=== PATIENT | female | born 1980 | race Caucasian/White ===

== ENCOUNTER 2017-12-06 17:01 | Inpatient (IN) | payer OTHER ==
[2017-12-06] VITALS (10 sets, daily range): BP systolic 86–127; BP diastolic 47–80
[~2017-12-06] VITALS: Ht 172.7 cm; Wt 68.9 kg
[~2017-12-06 17:01] MED LIST: BIRTH CONTROL PO; FLEXERIL PO; FLONASE 0.05%50 MCG NASAL; HYDROCODON-ACE1 EAC7 PO; NORCO 5-325 TA1 EAC1 PO; NORCO 5-325 TA1 EACH PO
[2017-12-06] MEDS ORDERED: FLEXERIL PO (17:14)
[2017-12-06] MEDS ORDERED: PROZAC20 MG PO (17:14)
[2017-12-06] MEDS ORDERED: NABUMETONE 750750 M1 PO (17:14)
[2017-12-06] MEDS ORDERED: HYDROXYZINE HCL25 M1 PO (17:15)
[2017-12-06] MEDS ORDERED: ATIVAN1 MG PO (17:15)
[2017-12-06] MEDS ORDERED: XANAX 0.5 MG0.5 MG PO (17:16)
--- NOTE | 2017-12-06 17:20 | NUR ---
bottles found with pt: alprazolam 0.5mg 2013 #30, fluoxetine 20mg 2017 #30, cyclobenzaprine 10mg 2012 #60, hydroxyzine hcl 25 mg 11/07/17 #30 with 3 left, fluoxetine 20 mg 08/24/17 #30, lorazepam 1 mg 2012 #14, husbands pill bottles found next to pt oxycodone 5mg 2011, xanax 0.5 mg 2012 #30 (#30, #60 and #14 are number of pills rx'd in bottles, only bottle with pills left was hydroxyzine with 3)
--- NOTE | 2017-12-06 17:52 | NUR ---
PT BECAME AROUSABLE AFTER ROMAZICON. AWAKE FOR APPROXIMATELY 5 MINUTES; THEN FALLS BACK TO SLEEP
[2017-12-06 17:56] LABS: ABSOLUTE EOSINOPHILS 0.1 thou/uL (0.0-0.7); ABSOLUTE LYMPHOCYTES 2.5 thou/uL (0.8-5.3); ABSOLUTE MONOCYTES 0.5 thou/uL (0.0-1.2); ABSOLUTE NEUTROPHILS 5.8 thou/uL (1.6-8.1); BASOPHILS 0.5 %; EOSINOPHILS 0.8 %; HEMATOCRIT 40.5 % (37.0-47.0); HEMOGLOBIN 13.6 gm/dL (12.0-15.0); LYMPHOCYTES 27.6 %; MCH 31.8 pg (26.0-34.0); MCHC 33.7 g/dL (28.0-37.0); MCV 94.4 fL (80.0-100.0); MONOCYTES 6.1 %; MPV 8.9 fl. (7.2-11.1); NUCLEATED RBCS 0 /100WBC; PLATELET COUNT* 250 thou/uL (150-400); RBC 4.29 mil/uL (4.20-5.00); RDW-CV 14.1 % (10.5-14.5); WBC 8.9 thou/uL (4.0-11.0)
[2017-12-06 18:02] LABS: CALCIUM 8.1 mg/dL (8.5-10.1); CREATININE 0.5 mg/dL (0.6-1.3); POTASSIUM 3.8 mmol/L (3.5-5.1)
[2017-12-06 18:07] LABS: ALBUMIN 3.8 g/dL (3.4-5.0); TOTAL PROTEIN 6.7 g/dL (6.4-8.2)
[2017-12-06 18:13] LABS: BE -4.7 mmol/L (-2 to +3); HCO3 22.3 mmol/L (22.0-26.0); PCO2 48.7 mmHg (35.0-45.0); PO2 110.4 mmHg (75.0-100.0)
[2017-12-06 18:15] LABS: pH 7.278 (7.340-7.450)
[2017-12-06 18:19] LABS: SALICYLATE 2.7 mg/dL (2.8-20.0)
[2017-12-06 19:27] LABS: APTT 27.4 Seconds (25.0-31.3)
[2017-12-06 19:42] LABS: URINE BILIRUBIN NEGATIVE (Negative); URINE BLOOD NEGATIVE (Negative); URINE CLARITY CLEAR; URINE COLOR YELLOW; URINE GLUCOSE-RANDOM NEGATIVE (Negative); URINE KETONES NEGATIVE (Negative); URINE LEUKOCYTES-REFLEX NEGATIVE (Negative); URINE NITRITE-REFLEX NEGATIVE (Negative); URINE PROTEIN NEGATIVE (Negative); URINE UROBILINOGEN 0.2 E.U./dl (0.2-1.0)
[2017-12-06 19:56] LABS: AMP/METHAMP Negative (Negative); BARBITURATES Negative (Negative); BENZODIAZEPINES POSITIVE (Negative); COCAINE Negative (Negative); METHADONE Negative (Negative); OPIATES POSITIVE (Negative); PCP Negative (Negative); THC Negative (Negative)
[2017-12-06 20:16] LABS: BE -4.5 mmol/L (-2 to +3); HCO3 24.3 mmol/L (22.0-26.0); PO2 123.3 mmHg (75.0-100.0)
[2017-12-06 20:18] LABS: pH 7.213 (7.340-7.450)
[2017-12-06 20:19] LABS: PCO2 61.7 mmHg (35.0-45.0)
[2017-12-06] MEDS ORDERED: EFFEXOR XR75 MG PO (20:43)
[2017-12-06 23:41] LABS: BE -3.7 mmol/L (-2 to +3); HCO3 25.9 mmol/L (22.0-26.0)
[2017-12-06 23:44] LABS: PCO2 69.6 mmHg (35.0-45.0); pH 7.188 (7.340-7.450)
[2017-12-07] VITALS (31 sets, daily range): BP systolic 84–112; BP diastolic 41–73
--- NOTE | 2017-12-07 01:50 | NUR ---
PT ADMITTED TO ICU AT 2130 INTUBATED AND SEDATED ON VENTILATOR AFTER INTENTIONAL OVERDOSE. PT'S PROVIDED HEALTH HISTORY. PT'S REPORTS FINDING PT UNRESPONSIVE AT HOME. REPORTS PT HAS DEPRESSION BUT HAS NEVER MADE AN ATTEMPT BEFORE. STATES THEY ARE GOING THROUGH A DIVORCE AT THIS TIME. SPOKE WITH DR ÁLVAREZ AT 2330 AND RECIEVED ORDERS FOR STANDING VENTILATOR ORDERS WITH PROPOFOL FOR SEDATION. SPOKE WITH DR ÁLVAREZ AT 0030 TO REPORT MAP < 60. RECIEVED ORER TO TURN OFF SEDATION.
[2017-12-07 03:44] LABS: HEMATOCRIT 35.5 % (37.0-47.0); HEMOGLOBIN 12.1 gm/dL (12.0-15.0); MCH 32.2 pg (26.0-34.0); MCHC 34.1 g/dL (28.0-37.0); MCV 94.4 fL (80.0-100.0); MPV 8.6 fl. (7.2-11.1); RBC 3.76 mil/uL (4.20-5.00); WBC 6.9 thou/uL (4.0-11.0)
[2017-12-07 04:03] LABS: CALCIUM 7.4 mg/dL (8.5-10.1); CREATININE 0.6 mg/dL (0.6-1.3); MAGNESIUM 1.8 mg/dL (1.8-2.4); POTASSIUM 3.7 mmol/L (3.5-5.1)
--- NOTE | 2017-12-07 06:28 | NUR ---
PT PROGRESSING TOWARD GOALS. PT OPENS EYES TO TOUCH, DOES NOT TRACK. O2 SAT 99-100% ON FIO2 30%. PT'S SEDATION OFF SINCE 29. HEART RATE WITHIN NORMAL LIMITS. BLOOD PRESSURE LOW BUT WITHIN NORMAL PARAMETERS, MAP > 60. LAB VALUES IMPROVED. NO ACUTE CHANGES DURING SHIFT, WILL CONTINUE TO MONITOR CLOSELY.
--- NOTE | 2017-12-07 08:10 | NUR ---
2249 assumed care of patient. please see documented assessment.DR ÁLVAREZ TO SEE PATIENT. SPOUSE PRESENT AND UPDATED ON PLAN OF CARE.OFF OF ALL SEDATION
[2017-12-07 08:26] LABS: BE -5.1 mmol/L (-2 to +3); HCO3 20.8 mmol/L (22.0-26.0); PCO2 41.5 mmHg (35.0-45.0); PO2 115.7 mmHg (75.0-100.0); pH 7.317 (7.340-7.450)
--- NOTE | 2017-12-07 15:06 | EKG ---
[place] [address] ELECTROCARDIOGRAM REPORT Name: GEOFF BAHENA Room: [address] ADM IN M.R.#: [id number] Admission: 12/06/17 Attend Phys: Simba Rea MD Discharge: Date of : 80 Report #: [id number] THIS REPORT FOR: //name// [facility] [place] ED Test Date: 2017-12-06 Test Time: 17:08:27 Pat Name: GEOFF BAHENA Department: Room: [address] Gender: F Assistant Child Care Teacher: Fiona STAPLETON : 1980 Requested By: Delio Long Order Number: [id number] Jodie MD: Tato Beauchamp Measurements Intervals [place] Rate: 96 P: FL: QRS: 82 QRSD: 118 T: 25 QT: 345 QTc: 436 Interpretive Statements sinus rhythm Baseline artifact No previous ECG available for comparison Electronically Signed On 12-07-2017 15:06:25 CDT by Tato Beauchamp [email or web address] <ELECTRONICALLY SIGNED> By: Tato Beauchamp MD, [facility] 12/07/17 1506 1708 1708 Tato Beauchamp MD, FACC /EPI
--- NOTE | 2017-12-07 16:26 | NUR ---
1600 DR ÁLVAREZ CALLED TO CHECK ON PATIENT STATUS. UPDATED AND HE SPOKE WITH RT. PT IS STILL DROWSY BUT CAN TAKE SPONTANEOUS BREATHS. WILL CONTINUE TO MONITOR
--- NOTE | 2017-12-07 17:44 | NUR ---
PATIENT WITH SOME PROGRESSION TOWARDS GOALS. HAS BEEN OFF OF SEDATION ALL DAY. ABLE TO FOLLOW COMMANDS BUT DROPS BACK TO SLEEP. MAY POTENTIALLY STILL BE ABLE TO EXTUBATE THIS EVENING IF WAKES UP MORE. VITAL SIGNS CHARTED. DISCUSSED LACK OF AFFIDAVIT WITH DR ÁLVAREZ AND CHEMICAL LABORATORY TECHNICIAN. PATIENT IS CONFIDENTAIL AND HAS HAD VISITORS ALLOWED.
--- NOTE | 2017-12-07 21:17 | NUR ---
INITAL ASSESMENT COMPLETED AT 1900. AND FAMILY AT BEDSIDE ASSISTING WITH CARE. CPAP TRIAL IN PROGRESS AT THIS TIME TO DETERMINE IF PT IS READY FOR EXTUBATION. PT OPENS EYES TO VOICE AND FOLLOW COMMANDS. PT MOUTHS WORDS AND NODS YES AND NO.
--- NOTE | 2017-12-07 22:00 | NUR ---
PT SUCCESSFULLY COMPLETED TRIAL AND EXTUBATED AT 2150.
--- NOTE | 2017-12-07 22:12 | NUR ---
PT ON 2 LITERS O2 WITH SAT OF 100%.
[2017-12-07 22:45] LABS: BE -3.8 mmol/L (-2 to +3); HCO3 21.8 mmol/L (22.0-26.0); PCO2 41.8 mmHg (35.0-45.0); pH 7.335 (7.340-7.450)
[2017-12-07 22:48] LABS: PO2 150.7 mmHg (75.0-100.0)
[2017-12-08] VITALS (13 sets, daily range): BP systolic 91–110; BP diastolic 53–75
--- NOTE | 2017-12-08 08:00 | NUR ---
DR HUFF ON PT. HAS BEEN BY BEDSIDE THROUGH OUT NIGHT. PT REMAINS DROWSY BUT COOPERATIVE. PT STILL DOES NOT RECALL EVENTS THAT OCCURED PRIOR TO ADMISSION TO HOSPITAL.AFFIDAVITS OBTAINED THIS AM. PT HAS TOLERATED PO FLUIDS SINCE PRIOR SHIFT. SITTER REMANS IN ROOM.
--- NOTE | 2017-12-08 10:30 | NUR ---
PT ADMITTED 12/06 AFTER A DRUG OVERDOSE, WAS INTUBATED IN THE E.D., EXTUBATED LAST EVENING. PT REMAINS VERY SLEEPY. SPOKE WITH AT BEDSIDE. THEY HAVE BEEN SEEING A MARRIAGE COUNSELOR FOR THE LAST SEVERAL MONTHS, SAID PT DOES NOT HAVE ANY OTHER THERAPIST. HER PCP IS DR MANOLO AGARWAL, HE IS THE ONE WHO ORDERS ANY OF HER MEDICATIONS. LIVES AT HOME, THEY HAVE 2 CHILDREN AGES 8 AND 11. HIS PARENTS AND HER PARENTS LIVE CLOSE AND CAN HELP WITH THE CHILDREN. PLAN IS TO TRANSFER TO MED/SURG TODAY, PSYCH EVAL/ INPT PSYCH ONCE MORE ALERT AND MEDICALLY STABLE.
[2017-12-08] MEDS ORDERED: FLONASE 0.05%50 MCG NASAL (13:17)
--- NOTE | 2017-12-08 13:30 | NUR ---
REPORT CALLED TO AVTAR GIFFORD ON ORTHO SURG. DR CALLED ABOUT HS MED DOSE, MESSAGE SENT. DIETARY MADE AWARE OF BEHAVIORAL TRAY NEEDED FOR ALL MEALS.PT TRANSPORTED WITH ALL PERSONAL BELINGS TO ROOM 116. WENT WITH PT.
--- NOTE | 2017-12-08 17:23 | NUR ---
ASSUMED CARE OF PATIENT AFTER TRANSFER FROM ICU AT APPROXIMATELY 1340. AGREE WITH PREVIOUS NURSES ASSESSMENT. VSS ON ROOM AIR. PATIENT IS SLEEPY AND QUIET. VIDEO CONFERENCE DONE WITH PSYCH AND PATIENT WILL TRANSFER TO A PSYCHIATRIC FACILTY WHEN SHE IS MEDICALLY CLEARED, PER DR MASSEY. SITTER REMAINS IN THE ROOM, HOURLY ROUNDS MAINTAINED, CALL LIGHT WITHIN REACH AND NURSING WILL CONTINUE TO MONITOR.
[2017-12-09] VITALS: BP 95/56
--- NOTE | 2017-12-09 01:00 | NUR ---
AT THE BEGINING OF THE SHIFT WAS IN ROOM AND HAD PERSONAL BELONGINGS. NURSING STAFF REMINDED HIM OF PROTOCOL. THEN STATED "WELL ARE YOU GOING TO TAKE MY STUFF?" NURSING AWARE OF ONE TO ONE PROTOCOL AND CONTACTED SECURITY WELL THE CONCRETE TRUCK DRIVER. SECURITY SPOKE WITH . ALLOWED NURSING STAFF TO LOCK UP HIS BAG, BUT STAYED THE NIGHT IN THE ROOM WITH THE PATIENT. CONCRETE TRUCK DRIVER AND SECURITY AWARE.
[2017-12-09 04:00] VITALS: BP 106/77
--- NOTE | 2017-12-09 05:04 | NUR ---
PATIENT REMAINS ALERT AND ORIENTED THROUGHOUT SHIFT. VITAL SIGNS STABLE ON ROOM AIR. DENIES PAIN AND OR NAUSEA OR VOMITTING. ONE TO ONE STATUS MAINTAINED. IV PATENT AND SALINE LOCKED IN THE LEFT HAND. PATIENT HAD LEFT SUBCLAVIAN CENTRAL LINE THAT WAS DISCONTINUED PER TAPE RECORDING MACHINE OPERATOR/ICU PROTOCOL. RESTING COMFORTABLY THROUGHOUT NIGHT. CALL LIGHT WITHIN REACH AND NURSING STAFF IN ROOM AT ALL TIMES. BED IN LOW POSITION. HOURLY ROUNDING COMPLETE. NURSING WILL CONTINUE TO MONIOR.
[2017-12-09 08:00] VITALS: BP 128/79
--- NOTE | 2017-12-09 12:45 | NUR ---
PT.DEEMED STABLE FOR INPT.PSYCH TRANSFER PER . FAXED REFERRAL INFORMATION TO [facility] [phone]. ATTEMPTED TO CALL THEM [phone],BUT NO ANSWER. HERRERA [facility]KE WITH [phone] AND FAXED REF.TO [phone].
--- NOTE | 2017-12-09 14:21 | NUR ---
[facility] CALLED AND SAID THEY CAN ACCEPT PT.TODAY WITH DR.ASIM CABELLO ACCEPTING. CHART IS COPIED TO GO [facility] PT. AMBULANCE FORM FAXED TO [facility]. ИРИНА PICHARDO WILL CALL REPORT TO [phone]. NOTIFIED PT.AND . PT.HAD A LOT OF QUESTIONS AND THOSE WERE ANSWERED. WILL GO HOME TO GET HER SOME CLOTHES. TOLD HIM NO DRAW STRINGS OR SHOE STRINGS. AMBULANCE ARRANGED FOR [phone] WITH [facility].
[2017-12-09 14:50] VITALS: BP 128/79
--- NOTE | 2017-12-09 16:12 | NUR ---
PATIENT LEFT UNIT AT 1540. ALERT AND ORIENTED X4. UP AD ANN IN ROOM. IV DC'D. DENIES PAIN AND NAUSEA. TOLERATING DIET. SITTER AT BEDSIDE THROUGHOUT SHIFT. SI PRECAUTIONS REMAINED IN PLACE THROUGHOUT SHIFT. VSS ON ROOM AIR. HOURLY ROUNDS HAVE BEEN MAINTAINED THROUGHOUT SHIFT. LEFT VIA AMBULANCE TO TRANSFER TO PSYCH FACILITY.
[2017-12-09 18:18] VITALS: BP 128/79
== END 2017-12-09 18:20 | DRG 917 ==
LOC: M.ERS 17:01 → M.TBA-ER 18:09 → M.ICU 18:09 → M.ORTHSURG 12-08 13:25
PROVIDERS: Family Medicine; Personal Emergency Response Attendant; ADMIT Internal Medicine
DX: T42.4X2A Poisoning by benzodiazepines, intentional self-harm, initial encounter (principal); G92 Toxic encephalopathy; J96.02 Acute respiratory failure with hypercapnia; T48.1X2A Poisoning by skeletal muscle relaxants [neuromuscular blocking agents], intentional self-harm, initial encounter; F32.9 Major depressive disorder, single episode, unspecified; F41.9 Anxiety disorder, unspecified; T43.222A Poisoning by selective serotonin reuptake inhibitors, intentional self-harm, initial encounter; Y92.89 Other specified places as the place of occurrence of the external cause; Z79.899 Other long term (current) drug therapy

== ENCOUNTER → 2021-06-19 | Outpatient (CLI) | payer OTHER ==
[~2021-06-19] MED LIST changes: +ATIVAN1 MG PO; +EFFEXOR XR75 MG PO; +HYDROXYZINE HCL25 M1 PO; +NABUMETONE 750750 M1 PO; +PROZAC20 MG PO; +XANAX 0.5 MG0.5 MG PO
== END ==
LOC: M.CT 07:48
PROVIDERS: ATTEND Nurse Practitioner Family
DX: Z13.6 Encounter for screening for cardiovascular disorders (principal); I25.10 Atherosclerotic heart disease of native coronary artery without angina pectoris

== ENCOUNTER → 2021-08-03 | Outpatient (CLI) | payer OTHER | LOC: M.RAD 14:40 | PROVIDERS: ATTEND Nurse Practitioner Family | DX: N63.22 Unspecified lump in the left breast, upper inner quadrant (principal); N64.4 Mastodynia ==